=== PATIENT | female | born 1965 | race Caucasian/White ===

== ENCOUNTER → 2016-08-21 | Outpatient (CLI) | payer OTHER ==
[~2016-08-21] MED LIST: ALBU1NEB10 INH; ALBUAER19 INH; AMIT50TA3 PO; ATV/1 PO; CYCL-259 PO; ELET40TA PO; FLUT0.0529 NAE; FLUT110A INH; GADAVIST IV PRN; HYZ/10015 PO; LPT/20 PO; METO50TA7 PO; MOME50SP5; PANT40TA PO; PRZ/40 PO; TEMA-79 PO
--- NOTE | 2016-08-21 14:04 | DIAGNOSTIC IMAGING REPORT ---
MRI OF THE BRAIN WITHOUT AND WITH IV CONTRAST CLINICAL HISTORY: Elevated sedimentation rate, headache, vertigo. COMPARISON STUDY: 07/18/2012 TECHNIQUE: MRI of the brain was performed from the vertex to the skull base utilizing various T1 and T2 weighted sequences. Following the IV administration of 10 mL of Gadavist contrast, additional enhanced images were obtained. FINDINGS: Sagittal T1, axial diffusion, proton density and T2 weighted axial, coronal FLAIR, and pre and post axial T1-weighted images were acquired. These were supplemented with post gadolinium coronal T1 weighted images. The patient was imaged under 0.7 [facility] open MRI scanner. No intra or extra-axial mass lesions are visualized. Axial diffusion-weighted images reveal no evidence of acute or subacute infarction. There is no evidence of ventricular dilatation. Proton density T2-weighted and FLAIR images reveal a few tiny foci of increased T2 signal within the white matter likely on a small vessel basis. There is an equivocal focus of subtle increased T2 signal within the left tamie. There are no abnormal flow voids. There is no evidence of pathologic enhancement. IMPRESSION: 1. Very subtle nonspecific focus of minimally increased T2 signal within the left tamie. 2. Minimal foci of increased T2 signal within the white matter likely on a small vessel basis 3. No evidence of intracranial mass. No evidence of acute or subacute infarction 4. No evidence of hydrocephalus Electronically signed by: Loc Gaines M.D. 08/21/2016 2:03 PM Dictated Date/Time: 08/21/2016 1:59 PM
== END | disposition home or self-care (01) ==
LOC: C.OPENMRI 12:38
PROVIDERS: ATTEND Nurse Practitioner
DX: R70.0 Elevated erythrocyte sedimentation rate (principal); R51 Headache; R42 Dizziness and giddiness; R26.89 Other abnormalities of gait and mobility